=== PATIENT | male | born 1960 | race Caucasian/White ===

== ENCOUNTER 2022-08-01 09:01 | Inpatient (IN) ==
[2022-08-01] MEDS ORDERED: ONDANSETRON 4 MG/2 ML VIAL IV ONE (09:45)
[2022-08-01] MEDS ORDERED: MORPHINE 2 MG/1 ML SYRINGE IV ONE (09:45)
[2022-08-01] MEDS ORDERED: SODIUM CHLORIDE 0.9% 1,000 ML IV STA (09:45)
[2022-08-01 10:13] LABS: Basophils % 0.2 % (0.0-0.8); Eosinophils % 0.6 % (0.00-10.9); Hematocrit 47.9 VOL% (42.0-52.0); Hemoglobin 16.7 GM/DL (14.0-18.0); Immature Granulocytes % 0.5 %; Immature Granulocytes Absolute 0.03 #; Lymphocytes # 1.3 10*3/uL (1.4-4.0); Mean Corpuscular HGB Conc 34.9 GM/DL (32-36); Mean Platelet Volume 9.6 FL (9.6-12.0); Monocytes # 0.8 10*3/uL (0.11-0.8); Monocytes % 12.9 % (1.7-12.7); Neutrophils % 65.8 % (38.7-73.9); Platelet Count 198 T/CUMM (130-400); Red Blood Count 5.15 MC/CUMM (3.8-5.5); Red Cell Distribution Width 12.7 % (9.3-17.3); White Blood Count 6.4 T/CUMM (4-12)
[2022-08-01 10:31] LABS: Bilirubin,Total 0.8 MG/DL (0.20-1.00); Osmolality,Calculated 276.1 MOS/KG (273-304); Total Protein 7.4 G/DL (6.4-8.2)
[2022-08-01 10:35] LABS: INR 3.6; PT Patient Result 35.9 SECS (10.1-12.1)
[2022-08-01 10:45] LABS: Bacteria,Urine Occasional /HPF (Few); Mucus,Urine Moderate /LPF (Occasional); RBC,Urine 4 /HPF (0-4); Squamous Epithelial Cell,Urine Occasional /HPF (0-10)
[2022-08-01 10:46] LABS: Urine Appearance Clear (Clear); Urine Color Yellow (Yellow)
[2022-08-01 10:47] LABS: Bilirubin,Urine Small mg/dL (Negative); Blood, Urine Negative (Negative); Glucose,Urine (UA) Negative (Negative); Ketones,Urine 40 mg/dL (Negative); Nitrite,Urine Negative (Negative); Protein,Urine Trace mg/dL (Negative); Urine Specific Gravity >= 1.030 (1.001-1.035); Urine Urobilinogen 0.2 eU/dL (<2.0); Urine pH 5.5 (4.5-8.0)
[2022-08-01] MEDS ORDERED: ONDANSETRON 4 MG/2 ML VIAL IV PRN (13:25)
[2022-08-01] MEDS ORDERED: MORPHINE 2 MG/1 ML SYRINGE IV PRN (13:25)
[2022-08-01] MEDS ORDERED: ACETAMINOPHEN 325 MG TABLET PO PRN (13:25)
[2022-08-01] MEDS ORDERED: hydrALAZINE 20 MG/1 ML VIAL IV PRN (13:29)
[2022-08-01] MEDS: PANTOPRAZOLE 40 MG VIAL IV SCH (13:59)
[2022-08-01] MEDS: SODIUM CHLORIDE 0.9% 1,000 ML IV SCH ×2 (14:45→22:25)
[2022-08-02] MEDS: SODIUM CHLORIDE 0.9% 1,000 ML IV SCH ×2 (06:26→13:34)
[2022-08-02 07:12] LABS: Basophils % 0.6 % (0.0-0.8); Eosinophils # 0.2 10*3/uL (0.0-0.87); Eosinophils % 3.6 % (0.00-10.9); Hematocrit 42.6 VOL% (42.0-52.0); Immature Granulocytes % 0.8 %; Immature Granulocytes Absolute 0.04 #; Lymphocytes # 1.8 10*3/uL (1.4-4.0); Mean Corpuscular HGB Conc 33.8 GM/DL (32-36); Mean Corpuscular Volume 94.5 FL (87-102); Mean Platelet Volume 9.9 FL (9.6-12.0); Monocytes # 0.6 10*3/uL (0.11-0.8); Monocytes % 12.5 % (1.7-12.7); Neutrophils % 47.5 % (38.7-73.9); Platelet Count 165 T/CUMM (130-400); Red Blood Count 4.51 MC/CUMM (3.8-5.5); Red Cell Distribution Width 12.8 % (9.3-17.3); White Blood Count 5.1 T/CUMM (4-12)
[2022-08-02 07:22] LABS: Hemoglobin 14.4 GM/DL (14.0-18.0)
[2022-08-02 07:24] LABS: INR 3.4; PT Patient Result 34.7 SECS (10.1-12.1)
[2022-08-02 07:46] LABS: Albumin 3.1 G/DL (3.4-5.0); Bilirubin,Total 0.7 MG/DL (0.20-1.00); Calcium 7.8 MG/DL (8.5-10.1); Osmolality,Calculated 282.3 MOS/KG (273-304); Potassium 4.1 MMOL/L (3.5-5.1); Risk Ratio 2.79; Total Protein 5.9 G/DL (6.4-8.2); VLDL Cholesterol 12.6 MG/DL
[2022-08-02] MEDS: PANTOPRAZOLE 40 MG VIAL IV SCH (09:01)
[2022-08-02 11:31] VITALS: BP 141/78
== END 2022-08-02 14:55 | disposition home or self-care (01) | DRG 392 ==
LOC: N.ED 09:01 → N.EDINP 13:46 → SUATTDRO 13:46 → N.3E 14:18
PROVIDERS: ADMIT Internal Medicine; ATTEND Family Medicine